=== PATIENT | female | born 1950 | race Hispanic/Latino ===

== ENCOUNTER → 2018-01-03 | Outpatient (CLI) | payer OTHER, MEDICARE | END | disposition home or self-care (01) | LOC: SHCH 14:37 | PROVIDERS: ATTEND Internal Medicine Cardiovascular Disease | DX: I10 Essential (primary) hypertension (principal); I07.1 Rheumatic tricuspid insufficiency; Z95.0 Presence of cardiac pacemaker | CPT/HCPCS: 93306 ==

== ENCOUNTER 2018-09-19 07:17 | Day surgery (SDC) | payer OTHER, MEDICARE ==
[2018-09-17 14:04] VITALS: BP 185/72
[2018-09-17 14:04] LABS: EOSINOPHILS % (AUTO) 2.8 % (0.0-8.0); LYMPHOCYTES % (AUTO) 36.4 % (21.0-51.0); MEAN CORPUSCULAR HEMOGLOBIN 28.2 pg (27.0-33.0); MEAN CORPUSCULAR HGB CONC 32.8 g/dL (32.0-36.0); MEAN CORPUSCULAR VOLUME 85.8 fL (79-99); MONOCYTES % (AUTO) 8.8 % (3.0-13.0); PLATELET COUNT (AUTO) 194 K/uL (130-400)
[2018-09-17 14:09] LABS: CREATININE 0.8 mg/dL (0.5-1.5); POTASSIUM 4.1 mmol/L (3.5-5.1)
[2018-09-17 14:34] LABS: INR 0.95 (0.85-1.15); PARTIAL THROMBOPLASTIN TIME 26.4 SEC (26.3-35.5)
[2018-09-19] VITALS (8 sets, daily range): BP systolic 108–148; BP diastolic 55–75
[~2018-09-19] VITALS: Ht 152.4 cm; Wt 77.5 kg
[~2018-09-19 07:17] MED LIST: AMIO200T5 PO; AMLO10TA7 PO; BACL10TA PO; CEFAZOLIN SODIUM 1 GM VIAL IVP SCH; GLIP-162 PO; LEVO75TA10 PO; LISI40TA4 PO; METF-444 PO; METO-409 PO; NAPR-1023 PO; ROPI0.5T5 PO; ROSU40TA20 PO; SODIUM CHLORIDE 0.9% 1000ML 1,000 ML IV SCH
--- NOTE | 2018-09-19 08:28 | NUR ---
ASSESSMENT PT HERE FOR PROCEDURE. DENIES ANY SOB, PAIN AT THIS TIME.
--- NOTE | 2018-09-19 10:35 | NUR ---
PROCEDURE PT TAKEN TO PROCEDURE VIA BED.
[2018-09-19] MEDS ORDERED: BUPIVACAINE/PF 0.25% 30ML VIAL IJ ONE (10:47)
[2018-09-19] MEDS ORDERED: MEPERIDINE-PF 25 MG/ML SYG ONE (10:47)
[2018-09-19] MEDS ORDERED: CEFAZOLIN SODIUM 1 GM VIAL ONE (10:47)
[2018-09-19] MEDS ORDERED: LIDOCAINE HCL 1% MDV 50ML VIAL ONE (10:50)
[2018-09-19] MEDS ORDERED: MIDAZOLAM HCL 1 MG/ML 2ML VIAL ONE (10:50)
[2018-09-19] MEDS ORDERED: TYL3 PO (11:50)
[2018-09-19] MEDS ORDERED: ACETAMINOPHEN 325 MG TAB PO PRN (12:00)
[2018-09-19] MEDS ORDERED: ACETAMINOPHEN-CODEINE 300/30MG TAB PO PRN (12:00)
--- NOTE | 2018-09-19 12:15 | NUR ---
SITE CHECK SITE TO LEFT UPP CHEST SOFT TO TOUCH. NO BLEEDING, OOZING NOTED TO SITE.
--- NOTE | 2018-09-19 12:30 | NUR ---
SITE CHECK SITE TO LEFT UPP CHEST SOFT TO TOUCH. NO BLEEDING, OOZING NOTED TO SITE.
--- NOTE | 2018-09-19 12:45 | NUR ---
SITE CHECK SITE TO LEFT UPPER CHEST DRY AND INTACT. SOFT TO TOUCH. NO BLEEDING, OOZING NOTED.
--- NOTE | 2018-09-19 13:00 | NUR ---
SITE CHECK SITE TO LEFT UPPER CHEST DRY AND INTACT. SOFT TO TOUCH. NO BLEEDING, OOZING NOTED.
--- NOTE | 2018-09-19 13:15 | NUR ---
SITE CHECK SITE TO LEFT UPPER CHEST DRY AND INTACT. SOFT TO TOUCH. NO BLEEDING, OOZING NOTED.
--- NOTE | 2018-09-19 13:45 | NUR ---
SITE CHECK SITE TO LEFT UPPER CHEST DRY AND INTACT. SOFT TO TOUCH. NO BLEEDING, OOZING NOTED.
--- NOTE | 2018-09-19 14:04 | NUR ---
DISCHARGE ORAL AND WRITTEN DISCHARGE INSTRUCTIONS GIVEN TO PT AND PTS DAUGHTER. PRESCRIPTION GIVEN TO DAUGHTER. INSTRUCTED DAUGHTER ON IMPORTANCE OF DAILY DRESSING CHANGES AND MONITORING SITE FOR INFECTIONS. BOTH VERBALIZED UNDERSTANDING.
--- NOTE | 2018-09-19 14:10 | NUR ---
REPORT REPORT GIVEN TO Mike LOPEZ RN. SITE TO LEFT UPPER CHEST SOFT TO TOUCH. NO BLEEDING, OOZING NOTED TO SITE.
== END 2018-09-19 15:35 | disposition home or self-care (01) ==
LOC: DAH 07:17
PROVIDERS: ATTEND Internal Medicine Cardiovascular Disease
DX: Z45.010 Encounter for checking and testing of cardiac pacemaker pulse generator [battery] (principal); Z68.30 Body mass index [BMI] 30.0-30.9, adult; Z79.899 Other long term (current) drug therapy; E78.5 Hyperlipidemia, unspecified; I10 Essential (primary) hypertension; E03.9 Hypothyroidism, unspecified; G20 Parkinson's disease; Z90.710 Acquired absence of both cervix and uterus; Z98.890 Other specified postprocedural states; Z79.01 Long term (current) use of anticoagulants
CPT/HCPCS: 33228; 36415; 80048; 82948 ×2; 85025; 85610; 85730; A4606; C1785; J0690; J2175; J2250; J3490 ×2; J7030; 99156; 99157

== ENCOUNTER → 2021-12-28 | Outpatient (CLI) | payer OTHER, MEDICARE ==
[~2021-12-28] MED LIST changes: +ALBUTEROL 0.083% 2.5 MG/3 ML INH IH ONE; -AMIO200T5 PO; +AMIO200T68 PO; +AMLO-258 PO; -AMLO10TA7 PO; -CEFAZOLIN SODIUM 1 GM VIAL IVP SCH; -LISI40TA4 PO; +LISI40TA9 PO; -ROPI0.5T5 PO; +ROPI0.5T7 PO; -ROSU40TA20 PO; +ROSU40TA21 PO; -SODIUM CHLORIDE 0.9% 1000ML 1,000 ML IV SCH; +TYL3 PO
== END | disposition home or self-care (01) ==
LOC: RESP 10:15
PROVIDERS: ATTEND Radiology Diagnostic Radiology
DX: I49.5 Sick sinus syndrome (principal); I10 Essential (primary) hypertension; Z79.899 Other long term (current) drug therapy
CPT/HCPCS: 94060; 94727; 94729

== ENCOUNTER → 2024-07-08 | Outpatient (CLI) | payer OTHER, MEDICARE ==
[~2024-07-08] MED LIST changes: -ALBUTEROL 0.083% 2.5 MG/3 ML INH IH ONE; +ROPI0.5T37 PO; -ROPI0.5T7 PO; -ROSU40TA21 PO; +ROSU40TA88 PO
== END | disposition home or self-care (01) ==
LOC: SHCH 09:57
PROVIDERS: ATTEND Internal Medicine Cardiovascular Disease
DX: I47.10 Supraventricular tachycardia, unspecified (principal); I49.5 Sick sinus syndrome; Z95.0 Presence of cardiac pacemaker
CPT/HCPCS: 93306